=== PATIENT | male | born 1950 | race Caucasian/White ===

== ENCOUNTER 2019-06-15 21:23 | Observation (INO) ==
[2019-06-15] MEDS ORDERED: Ondansetron 4 MG/2 ML VIAL IVP PRN (23:35)
[2019-06-15] MEDS ORDERED: Naloxone 0.4 MG/ML INJ IVP PRN (23:35)
[2019-06-16 00:44] LABS: Basophils # 0.1 K/mcL (0.0-0.2); Basophils % 0.5 %; Eosinophils # 0.4 K/mcL (0.0-0.6); Eosinophils % 2.7 %; Hematocrit 45.5 % (37.5-50.1); Hemoglobin 15.1 g/dL (12.9-16.9); Immature Granulocytes % 0.6 % (0-4); Lymphocytes # 2.4 K/mcL (0.6-4.6); Lymphocytes % 18.2 %; Mean Corpuscular HGB Conc 33.2 g/dL (31.6-35.5); Mean Corpuscular Hemoglobin 31.1 pg (28.0-33.3); Mean Corpuscular Volume 93.6 fL (83.0-100.0); Mean Platelet Volume 10.3 fL (9.4-12.4); Monocytes % 7.6 %; Neutrophils # 9.1 K/mcL (1.6-8.9); Platelet Count 324 K/mcL (140-400); Red Blood Count 4.86 M/mcL (4.19-5.50); Red Cell Distribution Width 13.6 % (11.5-14.5); Segmented Neutrophils % 70.4 %
[2019-06-16 00:51] LABS: Prothrombin Time 11.1 Seconds (9.4-12.1)
[2019-06-16 00:54] LABS: Activated Partial Thrombo Time 83.8 Seconds (26.0-36.0)
[2019-06-16 01:07] LABS: Alanine Aminotransferase 14 Units/L (7-52); Albumin 3.9 g/dL (3.5-5.7); Albumin/Globulin Ratio 1.3 (1.1-2.2); Alkaline Phosphatase 92 Units/L (34-104); Aspartate Amino Transferase 15 Units/L (13-39); BUN/Creatinine Ratio 25 (6-26); Bilirubin,Total 0.4 mg/dL (0.3-1.0); Blood Urea Nitrogen 23 mg/dL (8-23); Calcium 9.2 mg/dL (8.6-10.3); Carbon Dioxide 22 mEq/L (23-29); Chloride 109 mEq/L (98-107); Globulin 3.1 g/dL (2.4-3.5); Glucose 100 mg/dL (70-105); Magnesium 2.2 mg/dL (1.6-2.6); Osmolality,Calculated 292 (280-300); Phosphorous 3.8 mg/dL (2.7-4.5); Potassium 3.9 mEq/L (3.5-5.1); Sodium 139 mEq/L (136-145); eGFR For African Americans > 60 (> 60); eGFR For Non-African Americans > 60 (> 60)
[2019-06-16 01:17] LABS: Chol/HDL Ratio 5.8 (0-4.9); Cholesterol 279 mg/dL (< 200); HDL Cholesterol 48 mg/dL (40-59); LDL Cholesterol,Calculated 211 mg/dL (0-99); Triglycerides 98 mg/dL (< 150)
[2019-06-16] MEDS ORDERED: *HR* Metoprolol 5 MG/5 ML VIAL IVP PRN (01:27)
[2019-06-16 03:18] LABS: Bilirubin,Urine Negative (Negative); Blood,Urine Trace (Negative); Clarity,Urine Clear (Clear); Color,Urine Yellow (Yellow); Glucose,Urine (UA) Normal (Normal); Ketones,Urine Negative (Negative); Leukocyte Esterase,Urine Negative (Negative); Nitrite,Urine Negative (Negative); PH,Urine 5.5 pH Units (5.0-8.0); Protein,Urine >=300 mg/dL (Neg-Trace); Specific Gravity,Urine 1.024 (1.010-1.025); Urobilinogen,Urine Normal (Normal)
[2019-06-16 03:20] LABS: Bacteria,Urine None Seen per hpf (None-Few); Hyaline Casts,Urine None Seen per lpf (None-Few); Squamous Epithelial Cell,Urine Moderate per lpf (None-Few); WBC,Urine 0-3 per hpf (0-3)
[2019-06-16] MEDS ORDERED: Acetaminophen 325 MG TABLET PO PRN (06:03)
[2019-06-16] MEDS ORDERED: Aspirin 325 MG TABLET PO SCH (09:00)
[2019-06-16] MEDS ORDERED: *HR* Heparin 5,000 UNIT/ML VIAL IVP ONE (10:05)
[2019-06-16] MEDS ORDERED: *HR* Heparin 5,000 UNIT/ML VIAL IVP PRN ×2 (10:05)
[2019-06-16] MEDS ORDERED: Heparin 25,000 UNIT/250 ML D5W 25,000 UNIT/250 ML IV.SOLN IVC SCH (10:15)
[2019-06-16] MEDS: Lisinopril 20 MG TABLET PO SCH (11:29)
[2019-06-16 12:18] LABS: Hematocrit 45.7 % (37.5-50.1); Hemoglobin 14.6 g/dL (12.9-16.9); Mean Corpuscular HGB Conc 31.9 g/dL (31.6-35.5); Mean Platelet Volume 10.3 fL (9.4-12.4); Platelet Count 296 K/mcL (140-400); Red Blood Count 4.86 M/mcL (4.19-5.50); Red Cell Distribution Width 13.5 % (11.5-14.5); White Blood Count 10.6 K/mcL (4.3-11.1)
[2019-06-16 12:27] LABS: Heparin anti-factor XA UFH 0.01 IU/mL (0.30-0.70)
[2019-06-16 12:28] LABS: INR 0.9; Prothrombin Time 10.7 Seconds (9.4-12.1)
[2019-06-16] MEDS: Nicotine 21 MG PATCH.TD24 TD SCH (13:24)
[2019-06-16] MEDS ORDERED: Nitroglycerin 1,000 MCG/10 ML VIAL IV ONE (13:51)
[2019-06-16] MEDS ORDERED: ISOVUE-370 200 ML INFUS..BTL ONE ×2 (13:51→15:06)
[2019-06-16] MEDS ORDERED: Heparin 1,000 UNITS/500 mL 500 ML ONE (13:51)
[2019-06-16] MEDS ORDERED: *HR* Heparin 10,000 UNIT/10 ML VIAL ONE (13:51)
[2019-06-16] MEDS ORDERED: 0.9 % Sodium Chloride 2,000 ML ONE (13:51)
[2019-06-16] MEDS ORDERED: *HR* Midazolam HCl 2 MG/2 ML VIAL ONE (14:25)
[2019-06-16] MEDS ORDERED: *HR* FentaNYL (PF) 100 MCG/2 ML VIAL ONE (14:26)
[2019-06-16] MEDS ORDERED: Verapamil 5 MG/2 ML VIAL ONE (14:27)
[2019-06-16] MEDS ORDERED: Tirofiban 12.5 MG/250ML 12.5 MG/250 ML BAG ONE (15:28)
[2019-06-16] MEDS ORDERED: Tirofiban 12.5 MG/250ML 12.5 MG/250 ML BAG IVC SCH (15:45)
[2019-06-17 06:45] VITALS: BP 135/67
[2019-06-17] MEDS ORDERED: Nitroglycerin 0.4 MG TAB.SUBL SL PRN (08:35)
[2019-06-17] MEDS ORDERED: Metoprolol XL (24 HR) Succ 25 MG TAB.ER.24H PO SCH (09:00)
[2019-06-17] MEDS ORDERED: Aspirin Enteric Coated 81 MG Tablet PO SCH (09:00)
[2019-06-17] MEDS: Nicotine 21 MG PATCH.TD24 TD SCH (09:52)
[2019-06-17] MEDS: Lisinopril 20 MG TABLET PO SCH (09:52)
== END 2019-06-17 11:50 | disposition home or self-care (01) ==
LOC: 3BNU → SUATTDRO 23:09 → 2ANU 06-16 16:01
PROVIDERS: ADMIT Internal Medicine; ATTEND Internal Medicine

== ENCOUNTER 2020-09-05 23:54 | Observation (INO) ==
[2020-09-06] MEDS ORDERED: Naloxone 0.4 MG/ML INJ IVP PRN (03:16)
[2020-09-06] MEDS ORDERED: Perflutren Lipid Microsphere 1.3 ML in 0.9 % Sodium Chloride 8.7 ML IVP PRN ×2 (05:18→11:14)
[2020-09-06 06:33] LABS: Basophils # 0.1 K/mcL (0.0-0.2); Basophils % 0.7 %; Eosinophils # 0.3 K/mcL (0.0-0.6); Eosinophils % 3.4 %; Hematocrit 42.7 % (37.5-50.1); Hemoglobin 13.9 g/dL (12.9-16.9); Immature Granulocytes % 0.4 % (0-4); Lymphocytes # 1.9 K/mcL (0.6-4.6); Lymphocytes % 20.7 %; Mean Corpuscular HGB Conc 32.6 g/dL (31.6-35.5); Mean Corpuscular Hemoglobin 31.5 pg (28.0-33.3); Mean Corpuscular Volume 96.8 fL (83.0-100.0); Mean Platelet Volume 10.2 fL (9.4-12.4); Monocytes # 0.9 K/mcL (0.0-1.3); Monocytes % 9.9 %; Neutrophils # 5.9 K/mcL (1.6-8.9); Platelet Count 238 K/mcL (140-400); Red Blood Count 4.41 M/mcL (4.19-5.50); Red Cell Distribution Width 13.2 % (11.5-14.5); Segmented Neutrophils % 64.9 %; White Blood Count 9.2 K/mcL (4.3-11.1)
[2020-09-06 06:56] LABS: Alanine Aminotransferase 12 Units/L (7-52); Albumin 3.4 g/dL (3.5-5.7); Albumin/Globulin Ratio 1.3 (1.1-2.2); Alkaline Phosphatase 71 Units/L (34-104); Aspartate Amino Transferase 17 Units/L (13-39); BUN/Creatinine Ratio 22 (6-26); Bilirubin,Total 0.5 mg/dL (0.3-1.0); Blood Urea Nitrogen 22 mg/dL (8-23); Calcium 8.6 mg/dL (8.6-10.3); Carbon Dioxide 23 mEq/L (23-29); Chloride 110 mEq/L (98-107); Globulin 2.6 g/dL (2.4-3.5); Glucose 101 mg/dL (70-105); Osmolality,Calculated 295 (280-300); Potassium 3.6 mEq/L (3.5-5.1); Sodium 141 mEq/L (136-145); Troponin I 0.26 ng/mL (< 0.04); eGFR For African Americans > 60 (> 60); eGFR For Non-African Americans > 60 (> 60)
[2020-09-06] MEDS: Aspirin 81 MG TAB.CHEW PO SCH (11:26)
[2020-09-06] MEDS: lisinopriL 20 MG TABLET PO SCH (11:26)
[2020-09-06 11:54] LABS: Chol/HDL Ratio 7.4 (0-4.9)
[2020-09-06 12:05] LABS: Troponin I 0.22 ng/mL (< 0.04)
[2020-09-06] MEDS ORDERED: *HR* Heparin 5,000 UNIT/ML VIAL IVP ONE (12:57)
[2020-09-06] MEDS ORDERED: *HR* Heparin 5,000 UNIT/ML VIAL IVP PRN ×2 (12:57)
[2020-09-06] MEDS ORDERED: Heparin 25,000UNIT/250ML 1/2NS 25,000 UNIT/250 ML IV.SOLN IVC SCH (13:00)
[2020-09-06 13:37] LABS: Hematocrit 43.6 % (37.5-50.1); Hemoglobin 14.2 g/dL (12.9-16.9); Mean Corpuscular HGB Conc 32.6 g/dL (31.6-35.5); Mean Corpuscular Hemoglobin 31.8 pg (28.0-33.3); Mean Corpuscular Volume 97.5 fL (83.0-100.0); Platelet Count 233 K/mcL (140-400); Red Blood Count 4.47 M/mcL (4.19-5.50); Red Cell Distribution Width 13.2 % (11.5-14.5); White Blood Count 7.7 K/mcL (4.3-11.1)
[2020-09-06 13:46] LABS: Heparin anti-factor XA UFH < 0.04 IU/mL (0.30-0.70); Prothrombin Time 11.4 Seconds (9.4-12.1)
[2020-09-06] MEDS ORDERED: carvediloL 6.25 MG TABLET PO SCH (17:00)
[2020-09-06] MEDS: carvediloL 6.25 MG TABLET PO SCH (17:17)
[2020-09-07 03:21] LABS: BUN/Creatinine Ratio 27 (6-26); Blood Urea Nitrogen 25 mg/dL (8-23); Calcium 8.3 mg/dL (8.6-10.3); Carbon Dioxide 21 mEq/L (23-29); Chloride 110 mEq/L (98-107); Glucose 102 mg/dL (70-105); Magnesium 2.3 mg/dL (1.6-2.6); Osmolality,Calculated 293 (280-300); Phosphorous 3.4 mg/dL (2.7-4.5); Potassium 4.4 mEq/L (3.5-5.1); Sodium 139 mEq/L (136-145); eGFR For African Americans > 60 (> 60); eGFR For Non-African Americans > 60 (> 60)
[2020-09-07 06:55] VITALS: BP 140/84
[2020-09-07] MEDS: lisinopriL 20 MG TABLET PO SCH (07:51)
[2020-09-07] MEDS: carvediloL 6.25 MG TABLET PO SCH (07:51)
[2020-09-07] MEDS: Aspirin 81 MG TAB.CHEW PO SCH (07:51)
[2020-09-07 08:08] LABS: Estimated Average Glucose 131 mg/dl
== END 2020-09-07 12:07 | disposition home or self-care (01) ==
LOC: 3BNU → SUATTDRO 09-06 01:52
PROVIDERS: ADMIT Student in an Organized Health Care Education/Training Program; ATTEND Student in an Organized Health Care Education/Training Program

== ENCOUNTER 2020-09-26 23:45 | Observation (INO) ==
[2020-09-26 01:43] LABS: Hematocrit 41.9 % (37.5-50.1); Hemoglobin 13.2 g/dL (12.9-16.9); Heparin anti-factor XA UFH 0.56 IU/mL (0.30-0.70); Mean Corpuscular HGB Conc 31.5 g/dL (31.6-35.5); Mean Corpuscular Hemoglobin 29.9 pg (28.0-33.3); Mean Platelet Volume 9.8 fL (9.4-12.4); Platelet Count 382 K/mcL (140-400); Red Blood Count 4.41 M/mcL (4.19-5.50); Red Cell Distribution Width 12.1 % (11.5-14.5); White Blood Count 11.6 K/mcL (4.3-11.1)
[2020-09-26 01:44] LABS: INR 1.2; Prothrombin Time 13.4 Seconds (9.4-12.1)
[2020-09-26 01:56] LABS: BUN/Creatinine Ratio 20 (6-26); Blood Urea Nitrogen 16 mg/dL (8-23); Calcium 8.6 mg/dL (8.6-10.3); Carbon Dioxide 23 mEq/L (23-29); Chloride 108 mEq/L (98-107); Glucose 116 mg/dL (70-105); Osmolality,Calculated 290 (280-300); Sodium 139 mEq/L (136-145); eGFR For African Americans > 60 (> 60); eGFR For Non-African Americans > 60 (> 60)
[2020-09-26 02:00] LABS: Troponin I 2.66 ng/mL (< 0.04)
[2020-09-26] MEDS: lisinopriL 20 MG TABLET PO SCH (08:22)
[2020-09-26] MEDS: carvediloL 6.25 MG TABLET PO SCH ×2 (08:22→16:40)
[2020-09-26] MEDS: Aspirin Enteric Coated 81 MG Tablet PO SCH (08:23)
[2020-09-26] MEDS: 0.9 % Sodium Chloride 1,000 ML IVC SCH (16:40)
[~2020-09-26 23:45] MED LIST: *HR* FentaNYL (PF) 100 MCG/2 ML VIAL ONE; *HR* Heparin 10,000 UNIT/10 ML VIAL ONE; *HR* Heparin 5,000 UNIT/ML VIAL IVP PRN; *HR* Midazolam HCl 2 MG/2 ML VIAL ONE; 0.9 % Sodium Chloride 2,000 ML ONE; Acetaminophen 325 MG TABLET PO PRN; Heparin 1,000 UNITS/500 mL 500 ML ONE; Heparin 25,000UNIT/250ML 1/2NS 25,000 UNIT/250 ML IV.SOLN IVC SCH; ISOVUE-370 200 ML INFUS..BTL ONE; Naloxone 0.4 MG/ML INJ IVP PRN; Nitroglycerin 1,000 MCG/10 ML VIAL IV ONE
[2020-09-27 03:15] LABS: Hematocrit 40.9 % (37.5-50.1); Mean Corpuscular HGB Conc 31.8 g/dL (31.6-35.5); Mean Corpuscular Hemoglobin 30.2 pg (28.0-33.3); Mean Corpuscular Volume 94.9 fL (83.0-100.0); Mean Platelet Volume 9.6 fL (9.4-12.4); Platelet Count 394 K/mcL (140-400); Red Blood Count 4.31 M/mcL (4.19-5.50); Red Cell Distribution Width 12.2 % (11.5-14.5)
[2020-09-27 03:18] LABS: BUN/Creatinine Ratio 19 (6-26); Blood Urea Nitrogen 18 mg/dL (8-23); Calcium 8.3 mg/dL (8.6-10.3); Carbon Dioxide 23 mEq/L (23-29); Chloride 107 mEq/L (98-107); Glucose 132 mg/dL (70-105); Osmolality,Calculated 288 (280-300); Sodium 137 mEq/L (136-145); White Blood Count 11.1 K/mcL (4.3-11.1); eGFR For African Americans > 60 (> 60); eGFR For Non-African Americans > 60 (> 60)
[2020-09-27] MEDS: lisinopriL 20 MG TABLET PO SCH (07:59)
[2020-09-27] MEDS: Aspirin Enteric Coated 81 MG Tablet PO SCH (07:59)
[2020-09-27] MEDS: carvediloL 6.25 MG TABLET PO SCH (08:00)
[2020-09-27] MEDS ORDERED: Perflutren Lipid Microsphere 1.3 ML in 0.9 % Sodium Chloride 8.7 ML IVP PRN (08:56)
[2020-09-27] MEDS ORDERED: Nitroglycerin 0.4 MG TAB.SUBL SL PRN (08:58)
[2020-09-27] MEDS ORDERED: Isosorbide MONOnitrate (24 HR) 30 MG TAB.ER.24H PO SCH (09:00)
[2020-09-27 10:38] VITALS: BP 134/81
[2020-09-27] MEDS: 0.9 % Sodium Chloride 1,000 ML IVC SCH (13:59)
== END 2020-09-27 14:06 | disposition home or self-care (01) ==
LOC: 3BNU
PROVIDERS: ADMIT Family Medicine; ATTEND Family Medicine